=== PATIENT | male | born 1990 | race Caucasian/White ===

== ENCOUNTER 2021-03-27 18:23 | Observation (INO) | payer OTHER ==
[~2021-03-27] VITALS: Ht 175.3 cm; Wt 111.1 kg
[~2021-03-27 18:23] MED LIST changes: -BENZONATATE100 MG PO; -HYDR1TAB94 PO; -Ventolin/Prove6.7 GM INH
[2021-03-27 19:26] LABS: BASOPHILS ABSOLUTE AUTO 0.09 K/mm3 (0.00-0.23); BASOPHILS PERCENT AUTO 1 % (0-2); EOSINOPHILS ABSOLUTE AUTO 0.17 K/mm3 (0.00-0.68); EOSINOPHILS PERCENT AUTO 1 % (0-6); Hematocrit 45.7 % (37.0-53.0); Hemoglobin 15.1 g/dL (13.5-17.5); IMMATURE GRAN ABSOLUTE AUTO 0.09 K/mm3 (0.00-0.10); IMMATURE GRAN PERCENT AUTO 1 % (0-1); LYMPHOCYTES ABSOLUTE AUTO 3.18 K/mm3 (0.84-5.20); LYMPHOCYTES PERCENT AUTO 23 % (21-46); MONOCYTES ABSOLUTE AUTO 1.15 K/mm3 (0.16-1.47); MONOCYTES PERCENT AUTO 8 % (4-13); Mean Corpuscular HGB 28.3 pg (26.0-34.0); Mean Corpuscular Volume 86 fL (80-100); NEUTROPHILS ABSOLUTE AUTO 9.25 K/mm3 (1.96-9.15); NEUTROPHILS PERCENT AUTO 67 % (41-73); Platelet Count 311 K/mm3 (150-400); RDW Coefficient Variation 14.5 % (11.7-14.2); RDW Standard Deviation 44.6 fL (35.1-46.3); Red Blood Cell Count 5.33 M/mm3 (4.30-5.90); White Blood Cell Count 13.93 K/mm3 (4.00-11.30)
[2021-03-27 19:49] LABS: Alanine Aminotransfer (ALT/SGP 93 U/L (12-78); Albumin, Blood 3.6 g/dL (3.4-5.0); Albumin/Globulin Ratio 0.9 (0.8-1.8); Alk Phos 70 U/L (50-136); Anion Gap 2 mmol/L (6-16); Aspartate Aminotrans (AST/SGOT 23 U/L (12-37); Bilirubin, Total 0.7 mg/dL (0.1-1.0); Blood Urea Nitrogen 14 mg/dL (8-24); Bun/Creatinine Ratio 15.5 (12.0-20.0); CO2, Blood 30 mmol/L (21-32); Calcium, Blood 8.8 mg/dL (8.5-10.1); Chloride, Blood 106 mmol/L (98-108); Creatinine, Blood 0.91 mg/dL (0.60-1.20); Glomerular Filtration Rate >60 (60-); Glucose, Blood 93 mg/dL (70-99); Sodium, Blood 138 mmol/L (136-145); Total Protein, Blood 7.6 g/dL (6.4-8.2)
[2021-03-27] MEDS ORDERED: Ventolin/Prove6.7 GM INH (20:02)
[2021-03-27] MEDS ORDERED: BENZONATATE100 MG PO (20:03)
[2021-03-27 21:25] LABS: SARS-Cov-2 (COVID-19) PCR, MMC POSITIVE (NEGATIVE)
--- NOTE | 2021-03-28 08:55 | NUR ---
[facility]28[facility]21 [facility] RECEIVED SCHEDULED DOSE OF ANTIBIOTUICS PRIOR TO PROCEDURE, DR SUAREZ.
--- NOTE | 2021-03-28 10:42 | NUR ---
PT ARRIVED TO UNIT AT APROX 1015 FROM PACU. PT LAP SITES W/STERI STRIPS X'S 3 C/D/I. PT REPORTS PAIN 03/21, MEDICATED WITH 0.5MG DILAUDID. PT AMBULATED SBA TO BATHROOM, VOIDING. DENIES N/V, TOLERATING CLEAR LIQUIDS, WILL ADVANCE TOLERATED.
--- NOTE | 2021-03-28 15:59 | NUR ---
PT DOING WELL POST OP, PAIN WELL MANAGED WITH PO PAIN MEDICATION. TOLERATING REGULAR DIET, DENIES N/V. AMBULATING INDEPENDENTLY IN HALLWAYS. VSS.
[2021-03-28] MEDS ORDERED: AMOCLA875 PO (17:10)
[2021-03-28] MEDS ORDERED: HYDR1TAB94 PO (17:10)
--- NOTE | 2021-03-28 17:46 | NUR ---
DISCHARGE PT DISCHARGED HOME FROM UNIT AT APROX 1730. PT GIVEN WRITTEN AND VERBAL DISCHARGE INSTUCTIONS AND VERBALIZED UNDERSTANDING. WRITTEN RX GIVEN TO PT.
== END 2021-03-28 17:25 | disposition home or self-care (01) ==
LOC: ER 18:23 → ERHOLD 18:24 → SURS 03-28 10:03
PROVIDERS: Physician Assistant; ADMIT Surgery
PROC: 0DTJ4ZZ Resection of Appendix, Percutaneous Endoscopic Approach (ICD-10-PCS; principal; 2021-03-28 07:45)
DX: K35.80 Unspecified acute appendicitis (principal); U07.1 COVID-19; F17.220 Nicotine dependence, chewing tobacco, uncomplicated
CPT/HCPCS: 36415; 80053; 85025; 96365-59; 96366; 96366-59; 96375-59; 99285-25; A9270; G0378; J1100; J1170; J1885; J2270; J2405; J2543; J2704; J2710; J3010; J7120; U0004

== ENCOUNTER → 2021-03-27 | Outpatient (CLI) | payer OTHER ==
[~2021-03-27] MED LIST: ADRENACLIC0.3 MG/0.3 INJ; ALBU90OI INH; AMOCLA875 PO; AZIT250 PO; BENADRYL25 MG PO; BENZONATATE100 MG PO; HYDR1TAB94 PO; LORA10ER PO; Norco 5-325 Ta1 EACH PO; PRED20 PO; Pepcid20 MG PO; Prednisone50 MG PO; Ventolin/Prove6.7 GM INH
[2021-03-27 16:41] LABS: BASOPHILS ABSOLUTE AUTO 0.07 K/mm3 (0.00-0.23); BASOPHILS PERCENT AUTO 1 % (0-2); EOSINOPHILS PERCENT AUTO 2 % (0-6); Hematocrit 49.2 % (37.0-53.0); Hemoglobin 16.4 g/dL (13.5-17.5); IMMATURE GRAN PERCENT AUTO 1 % (0-1); LYMPHOCYTES ABSOLUTE AUTO 3.23 K/mm3 (0.84-5.20); LYMPHOCYTES PERCENT AUTO 24 % (21-46); MONOCYTES ABSOLUTE AUTO 1.07 K/mm3 (0.16-1.47); MONOCYTES PERCENT AUTO 8 % (4-13); Mean Corpuscular HGB Conc 33.3 g/dL (31.5-36.5); Mean Corpuscular Volume 84 fL (80-100); Mean Platelet Volume 9.9 fL (9.1-12.4); NEUTROPHILS ABSOLUTE AUTO 8.95 K/mm3 (1.96-9.15); NEUTROPHILS PERCENT AUTO 66 % (41-73); Platelet Count 333 K/mm3 (150-400); RDW Coefficient Variation 14.6 % (11.7-14.2); RDW Standard Deviation 44.1 fL (35.1-46.3); Red Blood Cell Count 5.85 M/mm3 (4.30-5.90); White Blood Cell Count 13.62 K/mm3 (4.00-11.30)
[2021-03-27 17:10] LABS: Anion Gap 7 mmol/L (6-16); Blood Urea Nitrogen 13 mg/dL (8-24); Bun/Creatinine Ratio 12.6 (12.0-20.0); CO2, Blood 31 mmol/L (21-32); Chloride, Blood 103 mmol/L (98-108); Creatinine, Blood 1.03 mg/dL (0.60-1.20); Glomerular Filtration Rate >60 (60-); Glucose, Blood 91 mg/dL (70-99); Potassium, Blood 4.1 mmol/L (3.5-5.5); Sodium, Blood 141 mmol/L (136-145)
== END | disposition home or self-care (01) ==
LOC: LAB SHORT 16:35 → LAB 16:35
PROVIDERS: Chiropractor
DX: S39.91XA Unspecified injury of abdomen, initial encounter (principal)
CPT/HCPCS: 80048; 85025